=== PATIENT | female | born 1975 | race African-American/Black ===

== ENCOUNTER 2019-11-07 23:35 | Emergency (ER) | payer OTHER, SELFPAY ==
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
[2019-11-07 23:40] VITALS: BP 143/86; PULSE 90; RESP 18; TEMP 36.8; O2SAT 97; BMI 24.7
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
[2019-11-08] MEDS: HYDROcodone-acetaminophen 7.5-325 mg Tablet 1 TAB PO ×2 (00:04→02:07)
[2019-11-08 00:06] VITALS: BP 113/77; PULSE 88; RESP 18; TEMP 36.3; O2SAT 97
[2019-11-08 00:43] VITALS: BP 127/78; PULSE 78; RESP 18; O2SAT 97
[2019-11-08 01:18] VITALS: RESP 18
[2019-11-08] MEDS: morphine 4 mg/mL SDV 1 mL IVP (01:18)
[2019-11-08] MEDS: ondansetron 2 mg/ML SDV 2 mL 4 MG IVP (01:18)
[2019-11-08 01:29] VITALS: BP 108/68; PULSE 85; RESP 16; O2SAT 96
[2019-11-08 02:10] VITALS: BP 135/90; PULSE 74; RESP 16; TEMP 36.7; O2SAT 96
== END 2019-11-08 02:23 | disposition home or self-care (01) ==
PROVIDERS: Emergency Provider Physician Assistant
DX: M25.561 Pain in right knee (principal)
CPT/HCPCS: 12345; 29530; 73562; 96374; 96375; 99283; 99284; E0114; J2270; J2405

== ENCOUNTER 2020-04-30 07:50 | Outpatient (CLI) | payer OTHER, SELFPAY ==
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
== END 2020-04-30 07:51 | disposition home or self-care (01) ==
LOC: RADSHAW 07:52
PROVIDERS: PCP Nurse Practitioner; Visit Provider Nurse Practitioner
DX: M22.41 Chondromalacia patellae, right knee (principal); M67.461 Ganglion, right knee; S83.241A Other tear of medial meniscus, current injury, right knee, initial encounter; X58.XXXA Exposure to other specified factors, initial encounter
CPT/HCPCS: 73721

== ENCOUNTER 2020-05-23 09:33 | Outpatient (CLI) | payer OTHER, SELFPAY ==
--- NOTE | 2020-05-23 09:38 | MM_ITS ---
WS: [id number] BILATERAL DIGITAL SCREENING MAMMOGRAPHY WITH CAD CLINICAL INFORMATION: SCREENING HISTORY: Screening mammogram. No current complaints. COMPARISON: TECHNIQUE: Bilateral CC and MLO views. FINDINGS: Scattered fibroglandular densities bilaterally. No suspicious focal mass, asymmetry, calcifications, or architectural distortion. No evidence of malignancy. Punctate calcifications left breast. MM/[place] [id number] IMPRESSION: BI-RADS: 2-Benign FOLLOW UP: 1 Year Follow-up Recommend return to annual screening mammography.
== END 2020-05-23 09:34 | disposition home or self-care (01) ==
LOC: RADSHAW 09:34
PROVIDERS: PCP Nurse Practitioner; Visit Provider Nurse Practitioner
DX: Z12.31 Encounter for screening mammogram for malignant neoplasm of breast (principal)
CPT/HCPCS: 77067

== ENCOUNTER 2020-09-10 09:50 | Outpatient (RCR) | payer OTHER, SELFPAY | END 2020-09-20 23:59 | disposition home or self-care (01) | LOC: SPT 09:50 | PROVIDERS: PCP Nurse Practitioner; Referring Provider Nurse Practitioner; Visit Provider Nurse Practitioner | DX: M17.9 Osteoarthritis of knee, unspecified (principal) | CPT/HCPCS: 97110; 97161 ==

== ENCOUNTER 2020-09-21 06:00 | Outpatient (RCR) | payer OTHER, SELFPAY | END 2020-10-21 23:59 | disposition home or self-care (01) | LOC: SPT 06:00 | PROVIDERS: PCP Nurse Practitioner; Referring Provider Nurse Practitioner; Visit Provider Nurse Practitioner | DX: M23.611 Other spontaneous disruption of anterior cruciate ligament of right knee (principal) | CPT/HCPCS: 97110 ==

== ENCOUNTER 2020-10-22 06:00 | Outpatient (RCR) | payer OTHER, SELFPAY | END 2020-11-20 23:59 | disposition home or self-care (01) | LOC: SPT 06:00 | PROVIDERS: PCP Nurse Practitioner; Referring Provider Nurse Practitioner; Visit Provider Nurse Practitioner | DX: M23.611 Other spontaneous disruption of anterior cruciate ligament of right knee (principal) | CPT/HCPCS: 97110 ==

== ENCOUNTER 2020-11-21 06:00 | Outpatient (RCR) | payer OTHER, SELFPAY | END 2020-12-21 23:59 | disposition home or self-care (01) | LOC: SPT 06:00 | PROVIDERS: PCP Nurse Practitioner; Referring Provider Nurse Practitioner; Visit Provider Nurse Practitioner | DX: M23.611 Other spontaneous disruption of anterior cruciate ligament of right knee (principal) | CPT/HCPCS: 97110 ==

== ENCOUNTER 2025-01-02 08:32 | Outpatient (CLI) | payer OTHER, SELFPAY ==
--- NOTE | 2025-01-02 08:40 | MM_ITS ---
WS: [id number] BILATERAL SCREENING DIGITAL TOMOSYNTHESIS MAMMOGRAM WITH CAD HISTORY: SCREENING COMPARISON: 05/23/2020, 03/21/2018 Bilateral CC and MLO views with tomosynthesis and synthetic mammography submitted. Computer aided detection analyzed. Breast composition: There are scattered areas of fibroglandular density. No suspicious masses, microcalcifications or architectural distortion. Benign asymmetries and calcifications. MM/MM scr BI tomosynthesis [id number] IMPRESSION: BI-RADS: 2 - Benign. FOLLOW UP: 1 Year Follow-up
== END 2025-01-02 08:33 | disposition home or self-care (01) ==
LOC: RAD 08:34
PROVIDERS: PCP Nurse Practitioner; Visit Provider Nurse Practitioner
DX: Z12.31 Encounter for screening mammogram for malignant neoplasm of breast (principal); R92.1 Mammographic calcification found on diagnostic imaging of breast; N64.89 Other specified disorders of breast
CPT/HCPCS: 77063; 77067

== ENCOUNTER → 2025-01-10 09:19 | Outpatient (BNVA) | payer OTHER, SELFPAY | PROVIDERS: PCP Nurse Practitioner; Visit Provider Orthopaedic Surgery | DX: M25.561 Pain in right knee (principal); G89.29 Other chronic pain | CPT/HCPCS: 73560; 73565; 99204 ==

== ENCOUNTER 2025-01-22 06:56 | Outpatient (CLI) | payer OTHER, SELFPAY ==
--- NOTE | 2025-01-22 07:15 | MR_ITS ---
WS: [id number] MRI RIGHT KNEE HISTORY: Right knee pain, recent fall. COMPARISON: 04/30/2020, radiographs 01/10/2025 Anterior cruciate ligament: Prior ACL repair. Mild buckling of the ACL and intermediate signal in the central ligament. No definite retear identified. Posterior cruciate ligament: Intact. Medial collateral ligament: Small amount of fluid adjacent to the distal MCL but no tear. Posterior lateral corner structures: Intact. Medial menisci: Interval repair of a complex tear in the posterior horn of the medial meniscus. No retear identified. Lateral meniscus: Intact. Normal signal, size and shape. Extensor mechanism: Quadriceps tendon is intact. There is a large enthesopathy at the attachment of the quadriceps tendon to the patella. Patellar tendon is intact with mild proximal tendinopathy. Fluid and soft tissue: Small joint effusion. Small amount of edema in the infrapatellar fat pad. No Dela Cruz's cyst. Osseous and articular structures: Patellofemoral compartment: Normal position of the patella. No significant loss of cartilage. Anterior surface irregularity along the patella from osteophytosis and degenerative changes. There is also small osteophyte from the distal anterior femur extending anteriorly towards the patellar eminence. Medial compartment: Moderate narrowing of the medial compartment. Small marginal osteophytes. Loss of cartilage. No acute fracture. Lateral compartment: Mild narrowing of the lateral compartment. Mild thinning and fissuring of the cartilage. No fracture or marrow edema. MR/MR knee RT wo con* [id number] IMPRESSION: 1. Status post ACL repair. There is slight buckling of the ACL repair but no d iscrete tear is identified. 2. Status post repair of the prior complex tear posterior horn medial meniscus . No meniscal retear identified. 3. Progression of medial compartment osteoarthritis with narrowing of the join t space and loss of cartilage. 4. No acute fractures. 5. Enthesopathy at the distal quadriceps tendon attachment. 6. Small suprapatellar joint effusion. 7. Mild osteoarthritis in the patellofemoral and lateral compartments.
== END 2025-01-22 06:57 | disposition home or self-care (01) ==
LOC: RAD 06:57
PROVIDERS: PCP Nurse Practitioner; Visit Provider Orthopaedic Surgery
DX: M25.561 Pain in right knee (principal)
CPT/HCPCS: 73721

== ENCOUNTER → 2025-01-24 08:57 | Outpatient (BNVA) | payer OTHER, SELFPAY | PROVIDERS: PCP Nurse Practitioner; Visit Provider Student in an Organized Health Care Education/Training Program | DX: Z12.11 Encounter for screening for malignant neoplasm of colon (principal); R03.0 Elevated blood-pressure reading, without diagnosis of hypertension | CPT/HCPCS: 99204 ==